=== PATIENT | female | born 1995 | race Caucasian/White ===

== ENCOUNTER 2016-12-24 19:55 | Emergency (ER) | payer OTHER ==
[~2016-12-24] VITALS: Ht 167.6 cm; Wt 59.1 kg
[~2016-12-24 19:55] MED LIST: AMPH10TA PO; AMPH20TA5 PO
[2016-12-24 20:06] VITALS: BP 107/67; PULSE 60; RESP 15; O2SAT 100
[2016-12-24] MEDS ORDERED: Ondansetron 2 mg/mL 2 mL Inj IVPUSH ONE (21:45)
--- NOTE | 2016-12-24 21:45 | ED.REPORT ---
HPI-Abd Pain F Under 40 Date of Service Dec 24, 2016 ED Provider: Josesito Sanford MD A 21 year old female with a history of heroin abuse (in recovery) presents to the ED complaining of N/V/D that began 3 days ago. Associated symptoms include diffuse abdominal pain, chills and myalgias. She took ibuprofen this evening with little relief. Patient denies any similar symptoms previously. She visited the [facility] 2 days ago for a rash to her hands, feet and mouth. The patient was placed on doxycycline and has been taking the medication as prescribed. Her last dose of doxycycline was this morning. Patient denies any urinary symptoms or black/tarry stool. She denies any recent sick contacts or tick bites. Patient is currently on her menstrual cycle. Nursing Notes Stated Complaint: SICK, DEHYDRATED Chief Complaint: Female Abdominal Pain Nursing Notes Reviewed: Yes Allergies: Coded Allergies: No Known Allergies (Unverified , 11/12/12) Scheduled Mixed Amphet-Expunged Drug, Do Not Renew! (Mixed Amphet-Expunged Drug, Do Not Renew!) 20 Mg Tablet 20 MG PO QAM NO REFILLS ALLOWED Mixed Amphet-Expunged Drug, Do Not Renew! (Mixed Amphet-Expunged Drug, Do Not Renew!) 10 Mg Tablet 10 MG PO NOON NO REFILLS ALLOWED Scheduled PRN Dicyclomine (Dicyclomine) 20 Mg Tablet 20 MG PO QID PRN PRN For GI Cramps Ondansetron ODT (Ondansetron ODT) 8 Mg Tab.rapdis 8 MG PO QID PRN PRN For Nausea Prochlorperazine Maleate (Compazine Suppository) 25 Mg Supp.rect 25 MG RC Q8 PRN PRN For Nausea/Vomiting General Time Seen by MD: 21:32 Chief Complaint Nausea, Vomiting mild Hx Obtained From: Patient Arrived By: Walk-in Sudden in Onset?: No Onset Occurred: 3 days ago Symptom Duration: Since onset Progression since Onset: Unchanged Location: : Diffuse Quality: Aching Radiation: : Does not radiate Severity: Current: Mild Severity: Maximum: Moderate Associated with: Reports: Diarrhea, Nausea, Vomiting Pertinent Negative: Pt denies other symptoms Recent Healthcare: No recent hospitalization, Recent doctor visit Past Medical History Past Medical History History of heroin abuse, otherwise healthy. MRSA Past Surgical History None reported. Smoking History Current Every Day Smoker Social History In recovery for the past 15 months Alcohol Use: "Social" Drug Use: THC, Other (Heroin; in recovery) Other Social History: Local resident Ambulatory Status Independent Review of Systems Constitutional: Reports: Chills GI: Reports: Abdominal pain, Diarrhea, Nausea, Vomiting, Denies: Melena Female: Denies: Dysuria, Hematuria, (currently on menstrual cycle ) , Urinary frequency, Urinary urgency, Urination decreased, Urination increased Complete sys rev & neg: except as marked. Physical Exam Initial Vital Signs Vital Signs (First) Date Time Temp Pulse Resp B/P Pulse Ox O2 Delivery O2 Flow Rate FiO2 12/24/16 20:06 36.4 60 15 107/67 100 Room Air Initial VS: Reviewed Head / Eyes: Atraumatic, Normocephalic, PERRL Extremities: Vascular intact, Neuro intact, No swelling, No tenderness Neurologic: Alert, Oriented, Nonfocal Psychiatric: Mood/affect normal, Behavior normal, Normal thought content General/Constitutional: Awake, Alert Distress / Hydration: Positive: Distress moderate Respiratory / Chest: Atraumatic, Breath sounds NL, Breath sounds = bilat, No respiratory distress Cardiovascular: Heart rate NL, Regular rhythm, Heart sounds NL Abdomen: Atraumatic, Soft Tenderness/Guarding/Rebound: Positive: Tender diffuse, Negative: Tender RLQ... Back: Atraumatic, Inspection NL Skin: Atraumatic, Color NL, No rash, Dry SKIN: Skin is cool Neck: Atraumatic, Supple, Full range of motion Meningeal Signs / ROM: Negative: Nuchal rigidity present Interpretation & Diagnostics Lab Results Interpretation Result Diagram: 12/24/16213712/24/162137 Test 12/24/16 21:38 12/25/16 00:20 White Blood Count 12.1th/mm3 (3.8-10.1) Red Blood Count 4.87mil/mm3 (3.90-5.20) Hemoglobin 14.4g/dL (12.0-15.6) Hematocrit 41.5% (35.0-46.0) Mean Corpuscular Volume 85.2fL (81-100) Mean Corpuscular Hemoglobin 29.6pg (27.0-35.0) Mean Corpuscular Hemoglobin Concent 34.7% (32.0-37.0) Red Cell Distribution Width 12.2% (12.3-15.4) Platelet Count 200bil/L (150-400) Neutrophils (%) (Auto) 87.7% (40-74) Lymphocytes (%) (Auto) 9.3% (14-46) Monocytes (%) (Auto) 2.2% (4-12) Eosinophils (%) (Auto) 0.4% (0-5) Basophils (%) (Auto) 0.2% (0-3) Sodium Level 140mEq/L (134-144) Potassium Level 4.5mEq/L (3.5-5.2) Chloride Level 105mEq/L (97-108) Carbon Dioxide Level 17mmol/L (18-29) Blood Urea Nitrogen 10mg/dL (6-20) Creatinine 0.49mg/dL (0.57-1.00) Estimat Glomerular Filtration Rate 226mL/min (>59) Glucose Level 136mg/dL (60-99) Calcium Level 9.7mg/dL (8.5-10.1) Magnesium Level 2.0mg/dL (1.6-2.6) Total Bilirubin 0.7mg/dL (0.0-1.2) Aspartate Amino Transf (AST/SGOT) 33U/L (0-50) Alanine Aminotransferase (ALT/SGPT) 26U/L (0-32) Alkaline Phosphatase 60U/L (25-150) Total Protein 7.5g/dL (6.4-8.4) Albumin 4.4g/dL (3.4-5.0) Lipase 32U/L (13-60) Human Chorionic Gonadotropin, Qual Negative (Negative) Hold Stewart Top Tube Received (Received) Urine Color Yellow (YELLOW) Urine Appearance Clear (CLEAR,HAZY) Urine pH 7.0 (5.0-8.0) Urine Specific [place] 1.015 (1.003-1.035) Urine Protein Negativemg/dL (NEG,TRACE) Urine Glucose (UA) Negativemg/dL (NEGATIVE) Urine Ketones 40mg/dL (NEGATIVE) Urine Occult Blood Small (NEGATIVE) Urine Nitrite Negative (NEGATIVE) Urine Bilirubin Negative (NEGATIVE) Urine Urobilinogen Normalmg/dL (NORMAL) Urine Leukocyte Esterase Negative (NEGATIVE) Urine RBC 0-2/hpf (0-2) Urine WBC 0-5/hpf (0-5) Urine Epithelial Cells Few/hpf (NONE-MOD) Urine Crystals None seen (NONE SEEN) Urine Bacteria Few/hpf (NONE-FEW) Urine Hyaline Casts None/lpf (NONE) Urine Granular Casts None seen (NONE SEEN) Urine Waxy Casts None seen (NONE SEEN) Urine Red Blood Cell Casts None seen (NONE SEEN) Urine White Blood Cell Casts None seen (NONE SEEN) Urine Mucus None seen (None Seen) Urine Trichomonas None seen (NONE SEEN) Urine Yeast None (NONE SEEN) Urinalysis Comment None Urine Culture Reflexed Not indicated Drug Screen / Level Interp Urine positive THC CT Abd / Pelvis Interpretation Trace nonspecific free fluid in the pelvic cul-de-sac likely physiologic Study type: Abdominal CT IV contrast Interpretation / Wet Read by: Interpret - Radiologist ([facility]) Re-Eval/Medical Decision Med Decision/Clinical Course Med Decision/Clinical Course: 21-year-old presents with three days of abdominal pain vomiting and diarrhea. She has no real focal findings on exam, but is diffusely tender. White count was moderately elevated. CT of her abdomen and pelvis does not reveal any significant pathology. Suspect gastroenteritis ultimately. Improved with blood gases draw blood cultures needed. Cramp relief with Bentyl. Home with stool collection kit for PCR to return in a.m. if diarrhea persists. Re-Evaluation/Progress #1: Time of Eval: 01:57 Patient Status: No relief Re-Evaluation/Progress Note: Further history is obtained. Her nausea and vomiting are still present. Re-Evaluation/Progress #2: Time of Eval: 02:31 Patient Status: Condition improved Re-Evaluation/Progress Note: Her nausea has improved and she passes the PO trial. All questions about the intended treatment plan are addressed. She understands and agrees with the plan. Counseled Regarding: Diagnosis, Lab results, Need for follow-up, When/why to return to ED Discharge & Departure Primary Impression: Gastroenteritis Additional Impression: Abdominal pain Abdominal location: generalized Qualified Code: R10.84 - Generalized abdominal pain Disposition: Home Discharge Condition All VS Reviewed: Yes Condition: Improved Patient Instructions: Gastroenteritis (ED), Acute Abdominal Pain (ED) Additional Instructions: Your evaluation included abdominal CT, labs, and physical exam. We found no signs of structural issues with your kidneys, gallbladder, liver, or pancreas. You most likely have gastroenteritis, an infection of the intestine.. This is usually a self-resolving disease. We are giving you Bentyl to decrease your cramps. Drink lots of liquids and stay well-hydrated. Use Zofran up to four times daily if needed for nausea. If that is insufficient , use Compazine as a suppository, up to three times daily. If you are still having diarrhea tomorrow, bring a fresh sample back to the lab for processing tomorrow. You can call the [facility] to get set-up with a primary care provider. Return to the ED if you experience new or worsening symptoms, including fever, vomiting blood, weakness, fainting, or if you can't keep liquids down for more than 24 hours. Referrals: NOPCP (PCP) [facility] Scribe Attestation Portions of this note were transcribed by Mireille Ferguson. I, Dr. Sanford personally performed the history, physical exam and medical decision-making; I reviewed and confirmed the accuracy of the information in the transcribed note. Signed by: Irma Joseph, 12/25/16 0240. Josesito Sanford MD Dec 24, 2016 21:45 MIREILLE FERGUSON Dec 24, 2016 21:45
[2016-12-24 21:51] LABS: BASOPHILS % (AUTO) 0.2 % (0-3); EOSINOPHILS % (AUTO) 0.4 % (0-5); MONOCYTES % (AUTO) 2.2 % (4-12); Mean Corpuscular Hemoglobin 29.6 pg (27.0-35.0); Mean Corpuscular Volume 85.2 fL (81-100); NEUTROPHILS % (AUTO) 87.7 % (40-74); Platelet Count 200 bil/L (150-400)
[2016-12-24] MEDS ORDERED: 0.9% Sodium Chloride 1,000 ML IV ONE (22:45)
[2016-12-24] MEDS ORDERED: ProchlorPERazine 5 mg/mL 2 mL Inj IVPUSH ONE (22:45)
[2016-12-25 00:52] LABS: APPEARANCE,URINE CLEAR (CLEAR,HAZY); COLOR,URINE YELLOW (YELLOW); OCCULT BLOOD,URINE SMALL (NEGATIVE); UROBILINOGEN,URINE NORMAL (NORMAL)
[2016-12-25 01:53] VITALS: BP 103/72; PULSE 77; RESP 16; O2SAT 100
[2016-12-25] MEDS ORDERED: PROC25SU30 RC (02:34)
[2016-12-25] MEDS ORDERED: DICY20TA10 PO (02:34)
[2016-12-25] MEDS ORDERED: ONDA8TAB10 PO (02:34)
--- NOTE | 2016-12-25 08:56 | DRSVH ---
PROCEDURE: CT ABDOMEN AND PELVIS WITH CONTRAST ([id number]) INDICATIONS: Diffuse abdominal pain for 3 days. TECHNIQUE: After the administration of intravenous contrast, 5 mm thick sections acquired from the diaphragms to the symphysis. 5 mm thick coronal and sagittal reformats were performed. For radiation dose reduct ion, the following was used: automated exposure control, adjustment of mA and/or kV according to pat ient size. COMPARISON: [facility], CT, CHEST/ABD/PELVIS W/CON (PNL), 11/12/2012, 2:55. FINDINGS: Image quality: Excellent. ABDOMEN: Lung bases: Lung bases are clear. Heart size is normal. Solid organs: Liver and spleen are normal in size and enhancement. Gallbladder demonstrates no calc ified gallstones or definite wall thickening. Biliary system is non-dilated. Pancreas enhances norm ally. No adrenal nodules. Kidneys are normal in size and enhancement, without hydronephrosis. Peritoneum and bowel: Stomach and small bowel loops are normal in caliber and wall thickness. The a ppendix is normal in appearance. There is possible mild segmental wall thickening of the colon exten ding from the distal transverse colon to the sigmoid colon but this may be due to incomplete distenti on. There is minimal free fluid in the pelvis which appears within physiologic limits. No free air. Nodes and vessels: No retroperitoneal or mesenteric adenopathy. Aorta and inferior vena cava are no rmal in caliber. Miscellaneous: No ventral hernias. PELVIS: Genitourinary: Bladder wall thickness is normal. Miscellaneous: No inguinal hernias or adenopathy. Bones: No suspicious bony lesions. Small sclerotic focus in the L3 vertebral body appears unchanged and is compatible with a bone island. No vertebral body compression fractures. IMPRESSION: 1. Slight segmental wall thickening of the distal colon which may reflect nondistention or a mild in fectious or inflammatory colitis. 2. Minimal free fluid in the pelvis appears within physiologic limits. Dictated by: Tommy James M.D. on 12/25/2016 at 8:43 Approved by: Tommy James M.D. on 12/25/2016 at 8:48
--- NOTE | 2016-12-28 14:50 | PCM.EDPN ---
ED Note Date of Service Dec 28, 2016 This is to indicate a received a phone call from radiology indicated over read the CT scan performed several days ago and there is a trace amount of nonspecific intestinal thickening or inflammatory changes. The original plan was to send this updated report to primary care physician, however they can find no accepting PCP who would accept the CT report, including the residency clinic which is listed on discharge instructions, so the radiologist called the ED. I reviewed the chart and the CT findings. Clinical care is appropriate and no interval change is immediately indicated. I have attempted to reach the patient -but left a voicemail simply to check on the condition and make sure they were improving I will last the charge nurse to call and check with the patient again, with the idea of the patient's clinical symptoms have not resolved that should be seen and rechecked. Santo Kothari MD Dec 28, 2016 14:50
== END 2016-12-25 02:52 | disposition home or self-care (01) ==
LOC: SED 19:55
DX: K52.9 Noninfective gastroenteritis and colitis, unspecified (principal); R10.84 Generalized abdominal pain; M79.7 Fibromyalgia; F17.200 Nicotine dependence, unspecified, uncomplicated
CPT/HCPCS: 36415; 74177; 80053; 81000; 83690; 83735; 84703; 85025; 96361; 96374; 96375; 99285; J0780; J1885; J2405; J7030; Q9967